=== PATIENT | female | born 1985 | race African-American/Black ===

== ENCOUNTER 2024-04-24 15:06 | Emergency (ER) | payer OTHER ==
[~2024-04-24] VITALS: Ht 165.1 cm; Wt 81.8 kg
[2024-04-24 15:33] VITALS: TEMP 98.3
[2024-04-24] MEDS ORDERED: HYDR30CR39 TP (16:35)
[2024-04-24] MEDS: PERTUSS(ACELL),DIPH,TET/PF 0.5 ML SYRINGE [ADULT] IM. ONE (16:54)
[2024-04-24 17:00] VITALS: BP 119/74; PULSE 79; RESP 16
== END 2024-04-24 17:55 | disposition home or self-care (01) ==
LOC: EMS 15:14
DX: L30.9 Dermatitis, unspecified (principal)
CPT/HCPCS: 90471; 90715; 99283